=== PATIENT | male | born 1985 | race African-American/Black ===

== ENCOUNTER 2017-03-08 23:44 | Emergency (ER) | payer MEDICAID | END 2017-03-09 02:00 | disposition home or self-care (01) | LOC: D.ER 23:44 | DX: S13.4XXA Sprain of ligaments of cervical spine, initial encounter (principal); Y93.52 Activity, horseback riding; Y93.89 Activity, other specified; Y92.89 Other specified places as the place of occurrence of the external cause; G40.909 Epilepsy, unspecified, not intractable, without status epilepticus; G47.00 Insomnia, unspecified; I10 Essential (primary) hypertension; F17.200 Nicotine dependence, unspecified, uncomplicated ==